=== PATIENT | female | born 1970 | race African-American/Black ===

== ENCOUNTER 2017-05-20 17:19 | Inpatient (IN) | payer MEDICARE, MEDICAID ==
[~2017-05-20] VITALS: Ht 167.6 cm; Wt 87.5 kg
[~2017-05-20 17:19] MED LIST: OXYCODONE PO; WARF5TAB71 PO
[2017-05-20 19:07] LABS: Basophils # (auto) 0 uL; Basophils % (auto) 0.5 % (0.0-2.0); CONDITION Y; DEFINITIVE SEE PRINTOUT; Eosinophils # (auto) 0 uL; Eosinophils % (auto) 0.3 % (0.0-7.0); Hematocrit 28.5 % (36.0-46.0); Hemoglobin 8.9 g/dL (12.2-16.2); Lymphocytes # (auto) 2.9 uL; Lymphocytes % (auto) 38.8 % (10.0-50.0); Mean Corpuscular Volume 80.4 fL (80.0-100.0); Monocytes # (auto) 0.5 uL; Monocytes % (auto) 7.1 % (0.0-12.0); Neutrophils % (auto) 53.3 % (37.0-80.0); Platelet Count (auto) 287 10^3/uL (140-450); Red Cell Distribution Width 17.5 % (11.6-16.0); White Blood Cell 7.5 10^3/uL (4.4-10.8)
[2017-05-20 19:27] LABS: Albumin 1.9 g/dL (3.4-5.0); BUN/Creatinine Ratio 16.3; Calcium 7.1 mg/dL (8.5-10.1)
[2017-05-20 19:29] LABS: Bilirubin, Total 0.4 mg/dL (0.2-1.0); Total Protein 5.1 g/dL (6.4-8.2)
[2017-05-20 21:09] LABS: Urine Bilirubin Negative (Negative); Urine Blood Negative /uL (Negative); Urine Color Yellow (Yellow); Urine Glucose Normal (Normal); Urine Ketone Negative (Negative); Urine Mucus FEW (None Seen); Urine Nitrite Negative (Negative); Urine RBC <1 /hpf (0 - 4); Urine Squamous Epithelial Cell FEW /hpf (<5); Urine Urobilinogen Normal (Negative); Urine pH 5.5 (5.0-8.0)
[2017-05-20] MEDS ORDERED: HYDROmorphone HCL 2 MG/ML VL IV ONE (23:30)
[2017-05-20] MEDS ORDERED: ENOXAPARIN SOD 80 MG/0.8ML SYRINGE SC ONE (23:30)
[2017-05-20] MEDS ORDERED: ONDANSETRON HCL 4 MG/2 ML VIAL IV ONE (23:30)
[2017-05-21] MEDS ORDERED: HYDROmorphone HCL 2 MG/ML VL IV ONE (03:15)
[2017-05-21] MEDS: SODIUM CHLORIDE 0.9% 1,000 ML IV SCH ×2 (06:33→13:51)
[2017-05-21] MEDS: FERROUS SULFATE 325 MG TAB PO SCH ×3 (08:00→18:04)
[2017-05-21] MEDS: ENOXAPARIN SOD 80 MG/0.8ML SYRINGE SC SCH ×2 (10:00→21:46)
[2017-05-21] MEDS: PANTOPRAZOLE SODIUM 40 MG/10 ML VIAL IV SCH (10:00)
[2017-05-21 11:42] VITALS: BP 80/52
[2017-05-21 12:17] VITALS: BP 103/54
[2017-05-21 12:18] VITALS: BP 80/52
[2017-05-21] MEDS: HYDROmorphone HCL 2 MG/ML VL IV PRN ×2 (14:05→20:42)
[2017-05-21] MEDS: ONDANSETRON HCL 4 MG/2 ML VIAL IV PRN ×2 (14:06→20:42)
[2017-05-21 17:00] VITALS: BP_SYST 151; BP_SYST 94; BP_DIAS 59; BP_DIAS 98
[2017-05-21] MEDS ORDERED: WARFARIN SODIUM 5 MG TAB PO ONE (17:00)
[2017-05-21] MEDS ORDERED: ACETAMINOPHEN 500 MG TAB PO PRN (18:30)
[2017-05-21 19:19] LABS: INR 1.24 (0.9-1.15)
[2017-05-21 19:50] LABS: Prothrombin Time 13.6 sec (9.37-12.3)
[2017-05-21 21:51] VITALS: BP 91/61
[2017-05-22] MEDS: ONDANSETRON HCL 4 MG/2 ML VIAL IV PRN ×3 (02:39→21:42)
[2017-05-22] MEDS: HYDROmorphone HCL 2 MG/ML VL IV PRN ×5 (02:39→21:41)
[2017-05-22 05:36] LABS: CONDITION Y; DEFINITIVE SEE PRINTOUT; Hematocrit 25.5 % (36.0-46.0); Hemoglobin 8.2 g/dL (12.2-16.2); Mean Corpuscular Hemoglobin 25.1 pg (28.0-32.0); Mean Corpuscular Hgb Conc. 31.9 g/dL (32.0-36.0); Mean Corpuscular Volume 78.7 fL (80.0-100.0); Mean Platelet Volume 10.3 fL (7.4-10.4); Platelet Count (auto) 259 10^3/uL (140-450); SUSPECT SEE PRINTOUT; White Blood Cell 6.4 10^3/uL (4.4-10.8)
[2017-05-22 05:44] LABS: INR 1.33 (0.9-1.15); Partial Thromboplastin Time 36.6 sec (22.64-33.71)
[2017-05-22 05:45] LABS: Metamyelocytes % 0; Myelocytes % 0; Promyelocytes % 0; Reactive Lymphocytes 0
[2017-05-22 05:46] LABS: Prothrombin Time 14.5 sec (9.37-12.3)
[2017-05-22 05:54] LABS: Albumin 1.5 g/dL (3.4-5.0); Calcium 6.8 mg/dL (8.5-10.1); Potassium 4.3 mmol/L (3.5-5.1)
[2017-05-22 05:58] LABS: BUN/Creatinine Ratio 18.3; Bilirubin, Total 0.3 mg/dL (0.2-1.0); Total Protein 4.1 g/dL (6.4-8.2)
[2017-05-22 06:11] VITALS: BP 89/44
[2017-05-22] MEDS: SODIUM CHLORIDE 0.9% 1,000 ML IV SCH ×2 (08:57→21:41)
[2017-05-22 09:00] VITALS: BP 92/49
[2017-05-22] MEDS: ENOXAPARIN SOD 80 MG/0.8ML SYRINGE SC SCH ×2 (09:48→21:25)
[2017-05-22] MEDS: PANTOPRAZOLE SODIUM 40 MG/10 ML VIAL IV SCH (09:48)
[2017-05-22] MEDS: FERROUS SULFATE 325 MG TAB PO SCH ×3 (09:49→19:00)
[2017-05-22 10:55] LABS: Platelet Estimate Adequate
[2017-05-22 10:56] LABS: Ovalocytes FEW
[2017-05-22 10:57] LABS: Anisocytosis Slight; Hypochromia Slight; Microcytosis Slight; Tear Drop Cells FEW
[2017-05-22 13:00] VITALS: BP 90/54
[2017-05-22 17:00] VITALS: BP 98/65
[2017-05-22 21:03] VITALS: BP 91/53
[2017-05-23] MEDS: ONDANSETRON HCL 4 MG/2 ML VIAL IV PRN ×4 (01:50→22:23)
[2017-05-23] MEDS: HYDROmorphone HCL 2 MG/ML VL IV PRN ×4 (01:50→22:23)
[2017-05-23 05:00] VITALS: BP 93/55
[2017-05-23 06:21] LABS: Basophils # (auto) 0 uL; Basophils % (auto) 0.5 % (0.0-2.0); CONDITION Y; DEFINITIVE SEE PRINTOUT; Eosinophils # (auto) 0.1 uL; Eosinophils % (auto) 1.2 % (0.0-7.0); Hematocrit 25.6 % (36.0-46.0); Hemoglobin 8.3 g/dL (12.2-16.2); Lymphocytes # (auto) 2.7 uL; Lymphocytes % (auto) 47.4 % (10.0-50.0); Mean Corpuscular Hemoglobin 25.8 pg (28.0-32.0); Mean Corpuscular Hgb Conc. 32.2 g/dL (32.0-36.0); Mean Corpuscular Volume 80.1 fL (80.0-100.0); Mean Platelet Volume 9.9 fL (7.4-10.4); Monocytes # (auto) 0.4 uL; Monocytes % (auto) 7.8 % (0.0-12.0); Neutrophils # (auto) 2.4 uL; Neutrophils % (auto) 43.1 % (37.0-80.0); Platelet Count (auto) 260 10^3/uL (140-450); Red Cell Distribution Width 18.3 % (11.6-16.0); White Blood Cell 5.6 10^3/uL (4.4-10.8)
[2017-05-23 06:36] LABS: INR 1.45 (0.9-1.15)
[2017-05-23 06:38] LABS: Prothrombin Time 15.9 sec (9.37-12.3)
[2017-05-23 06:53] LABS: Albumin 1.5 g/dL (3.4-5.0); BUN/Creatinine Ratio 14.5; Bilirubin, Total 0.3 mg/dL (0.2-1.0); Calcium 6.9 mg/dL (8.5-10.1); Potassium 4.2 mmol/L (3.5-5.1)
[2017-05-23] MEDS: FERROUS SULFATE 325 MG TAB PO SCH ×3 (07:45→18:00)
[2017-05-23 09:12] VITALS: BP 84/45
[2017-05-23] MEDS: ENOXAPARIN SOD 80 MG/0.8ML SYRINGE SC SCH ×2 (10:01→22:22)
[2017-05-23] MEDS: PANTOPRAZOLE SODIUM 40 MG/10 ML VIAL IV SCH (10:01)
[2017-05-23 11:07] LABS: Albumin 2.1 g/dL (2.9-4.4); Alpha-1-Globulin 0.2 g/dL (0.0-0.4); Gamma Globulin 1.3 g/dL (0.4-1.8); Protein Total Serum 4.4 g/dL (6.0-8.5)
[2017-05-23] MEDS: SODIUM CHLORIDE 0.9% 1,000 ML IV SCH (11:37)
[2017-05-23 13:00] VITALS: BP 112/49
[2017-05-23] MEDS ORDERED: SODIUM FERR GLUC 62.5MG/5ML 125 MG in SODIUM CHL 0.9% 100 ML IV ONE (13:00)
[2017-05-23 17:00] VITALS: BP 91/55
[2017-05-23 22:00] VITALS: BP 91/51
[2017-05-23 23:47] VITALS: BP 91/51
[2017-05-24] MEDS: SODIUM CHLORIDE 0.9% 1,000 ML IV SCH ×2 (00:57→22:03)
[2017-05-24] MEDS: HYDROmorphone HCL 2 MG/ML VL IV PRN ×3 (04:40→23:43)
[2017-05-24] MEDS: ONDANSETRON HCL 4 MG/2 ML VIAL IV PRN ×2 (04:40→18:43)
[2017-05-24 05:00] VITALS: BP 99/49
[2017-05-24 06:03] LABS: Basophils # (auto) 0 uL; Basophils % (auto) 0.4 % (0.0-2.0); CONDITION Y; DEFINITIVE SEE PRINTOUT; Eosinophils # (auto) 0.1 uL; Hematocrit 27.6 % (36.0-46.0); Hemoglobin 8.6 g/dL (12.2-16.2); Lymphocytes # (auto) 4.3 uL; Lymphocytes % (auto) 53.3 % (10.0-50.0); Mean Corpuscular Hemoglobin 24.8 pg (28.0-32.0); Mean Corpuscular Hgb Conc. 31.1 g/dL (32.0-36.0); Mean Corpuscular Volume 79.7 fL (80.0-100.0); Mean Platelet Volume 10.4 fL (7.4-10.4); Monocytes # (auto) 0.4 uL; Monocytes % (auto) 4.5 % (0.0-12.0); Neutrophils # (auto) 3.3 uL; Neutrophils % (auto) 40.8 % (37.0-80.0); Platelet Count (auto) 281 10^3/uL (140-450); Red Cell Distribution Width 18.7 % (11.6-16.0)
[2017-05-24 06:26] LABS: Albumin 1.6 g/dL (3.4-5.0); BUN/Creatinine Ratio 12.6; Bilirubin, Total 0.3 mg/dL (0.2-1.0); Calcium 7.2 mg/dL (8.5-10.1); Potassium 4.2 mmol/L (3.5-5.1); Total Protein 4.3 g/dL (6.4-8.2)
[2017-05-24 06:53] LABS: INR 1.56 (0.9-1.15)
[2017-05-24 06:57] LABS: Prothrombin Time 17.1 sec (9.37-12.3)
[2017-05-24 08:00] VITALS: BP 81/46
[2017-05-24 09:32] VITALS: BP 81/46
[2017-05-24] MEDS: FERROUS SULFATE 325 MG TAB PO SCH ×3 (09:47→18:42)
[2017-05-24] MEDS: PANTOPRAZOLE SODIUM 40 MG/10 ML VIAL IV SCH (09:47)
[2017-05-24] MEDS: ENOXAPARIN SOD 80 MG/0.8ML SYRINGE SC SCH ×2 (09:47→22:02)
[2017-05-24 13:00] VITALS: BP 84/43
[2017-05-24] MEDS: SODIUM FERR GLUC 62.5MG/5ML 125 MG in SODIUM CHL 0.9% 100 ML IV SCH (16:53)
[2017-05-24 18:16] VITALS: BP 79/51
[2017-05-24 22:00] VITALS: BP 86/53
[2017-05-25] MEDS: SODIUM CHLORIDE 0.9% 1,000 ML IV SCH (03:37)
[2017-05-25 05:00] VITALS: BP 96/45
[2017-05-25 06:30] LABS: Basophils # (auto) 0 uL; Basophils % (auto) 0.4 % (0.0-2.0); CONDITION Y; DEFINITIVE SEE PRINTOUT; Eosinophils # (auto) 0 uL; Eosinophils % (auto) 0.7 % (0.0-7.0); Hematocrit 25.2 % (36.0-46.0); Hemoglobin 7.9 g/dL (12.2-16.2); Lymphocytes # (auto) 3.2 uL; Lymphocytes % (auto) 51.8 % (10.0-50.0); Mean Corpuscular Hemoglobin 24.8 pg (28.0-32.0); Mean Corpuscular Hgb Conc. 31.6 g/dL (32.0-36.0); Mean Corpuscular Volume 78.7 fL (80.0-100.0); Mean Platelet Volume 10.6 fL (7.4-10.4); Monocytes # (auto) 0.5 uL; Monocytes % (auto) 7.2 % (0.0-12.0); Neutrophils # (auto) 2.5 uL; Neutrophils % (auto) 39.9 % (37.0-80.0); Platelet Count (auto) 279 10^3/uL (140-450); Red Cell Distribution Width 18.4 % (11.6-16.0); White Blood Cell 6.3 10^3/uL (4.4-10.8)
[2017-05-25 06:33] LABS: Albumin 1.5 g/dL (3.4-5.0); BUN/Creatinine Ratio 16.4; Bilirubin, Total 0.3 mg/dL (0.2-1.0); Calcium 7.1 mg/dL (8.5-10.1); Potassium 4.1 mmol/L (3.5-5.1); Total Protein 3.9 g/dL (6.4-8.2)
[2017-05-25 06:54] LABS: INR 1.53 (0.9-1.15)
[2017-05-25 06:56] LABS: Prothrombin Time 16.7 sec (9.37-12.3)
[2017-05-25 08:30] VITALS: BP 89/48
[2017-05-25] MEDS: FERROUS SULFATE 325 MG TAB PO SCH ×2 (08:31→12:00)
[2017-05-25] MEDS: ONDANSETRON HCL 4 MG/2 ML VIAL IV PRN (08:53)
[2017-05-25] MEDS: SODIUM FERR GLUC 62.5MG/5ML 125 MG in SODIUM CHL 0.9% 100 ML IV SCH (10:32)
[2017-05-25] MEDS: PANTOPRAZOLE SODIUM 40 MG/10 ML VIAL IV SCH (10:32)
[2017-05-25] MEDS: ENOXAPARIN SOD 80 MG/0.8ML SYRINGE SC SCH (10:32)
[2017-05-25 11:44] VITALS: BP 89/48
[2017-05-25 12:17] VITALS: BP 89/48
[2017-05-25 12:30] VITALS: BP 106/56
== END 2017-05-25 13:30 | disposition home or self-care (01) | DRG 299 ==
LOC: ER 17:24 → OVERFLOW 17:25 → EAST 05-21 08:02 → WEST WING 05-21 13:26
PROVIDERS: ADMIT Family Medicine; ATTEND Internal Medicine
DX: I82.4Z3 Acute embolism and thrombosis of unspecified deep veins of distal lower extremity, bilateral (principal); E43 Unspecified severe protein-calorie malnutrition; D64.9 Anemia, unspecified; D50.9 Iron deficiency anemia, unspecified; M79.89 Other specified soft tissue disorders; K21.9 Gastro-esophageal reflux disease without esophagitis; M19.90 Unspecified osteoarthritis, unspecified site; Z82.3 Family history of stroke; Z83.3 Family history of diabetes mellitus; Z82.49 Family history of ischemic heart disease and other diseases of the circulatory system; Z88.6 Allergy status to analgesic agent; Z79.899 Other long term (current) drug therapy; Z90.49 Acquired absence of other specified parts of digestive tract; Z68.31 Body mass index [BMI] 31.0-31.9, adult
CPT/HCPCS: 36415; 80053; 81001; 82607; 82728; 83540; 83550; 83615; 84155; 84165; 85007; 85025; 85027; 85045; 85379; 85610; 85730; 86880; 93005; 93970; 96372; 96374; 96375; 96376; C9113; J2405

== ENCOUNTER 2018-04-26 17:34 | Emergency (ER) | payer MEDICARE, MEDICAID ==
[~2018-04-26] VITALS: Ht 167.6 cm; Wt 86.2 kg
[2018-04-26 19:54] LABS: Basophils # (auto) 0.1 uL; Eosinophils # (auto) 0.1 uL; Mean Corpuscular Volume 79.7 fL (80.0-100.0)
[2018-04-26 19:56] LABS: Basophils % (auto) 1.2 % (0.0-2.0); Eosinophils % (auto) 1.3 % (0.0-7.0); Hematocrit 34.7 % (36.0-46.0); Hemoglobin 10.8 g/dL (12.2-16.2); Lymphocytes % (auto) 32.2 % (10.0-50.0); Mean Corpuscular Hemoglobin 24.9 pg (28.0-32.0); Mean Corpuscular Hgb Conc. 31.2 g/dL (32.0-36.0); Monocytes # (auto) 0.6 uL; Monocytes % (auto) 8.9 % (0.0-12.0); Neutrophils # (auto) 3.5 uL; Neutrophils % (auto) 56.4 % (37.0-80.0); Nucleated Red Blood Cells % 0.3 %; Platelet Count (auto) 303 10^3/uL (140-450); Red Blood Cells 4.36 10^6/uL (4.0-5.20); Red Cell Distribution Width 15.7 % (11.8-14.3); White Blood Cell 6.2 10^3/uL (4.4-10.8)
[2018-04-26 20:10] LABS: INR 1.02 (0.9-1.15); Partial Thromboplastin Time 26.2 sec (23.78-33.04); Prothrombin Time 10.9 sec (9.27-12.13)
[2018-04-26 20:11] LABS: Albumin 3.4 g/dL (3.4-5.0); BUN/Creatinine Ratio 26.1; Calcium 8.5 mg/dL (8.5-10.1); Potassium 4.7 mmol/L (3.5-5.1)
[2018-04-26 20:14] LABS: Bilirubin, Total 0.5 mg/dL (0.2-1.0); Magnesium 2.2 mg/dL (1.6-2.6); Total Protein 7.3 g/dL (6.4-8.2)
[2018-04-26] MEDS ORDERED: NALBUPHINE HCL 10 MG/1ml INJECTION IV ONE (20:15)
[2018-04-26] MEDS ORDERED: ONDANSETRON HCL 4 MG/2 ML VIAL IV ONE (20:15)
[2018-04-26] MEDS ORDERED: diphenhdrAMINE HCL 50 MG/1 ML VL ONE (20:40)
[2018-04-26] MEDS ORDERED: ENOXAPARIN SOD 100 MG/1 ML SYRINGE SC ONE ×2 (20:45→21:00)
[2018-04-26] MEDS ORDERED: diphenhdrAMINE HCL 50 MG/1 ML VL IV ONE (20:45)
[2018-04-27] MEDS ORDERED: HYDROcodone-ACET 5/325MG TAB PO ONE (01:30)
[2018-04-27] MEDS ORDERED: ONDANSETRON HCL 4 MG/2 ML VIAL IV ONE (01:30)
[2018-04-27 01:42] VITALS: BP 103/66
== END 2018-04-27 02:08 | disposition home or self-care (01) ==
LOC: ER 17:34
DX: R07.89 Other chest pain (principal); I82.402 Acute embolism and thrombosis of unspecified deep veins of left lower extremity; Z79.01 Long term (current) use of anticoagulants; Z86.718 Personal history of other venous thrombosis and embolism; Z90.49 Acquired absence of other specified parts of digestive tract
CPT/HCPCS: 36415; 71045; 80053; 83735; 83880; 84443; 84484; 85025; 85379; 85610; 85730; 93005; 93971; 96372; 96374; 96375; 96376; 99285; J1200; J1650; J2300; J2405

== ENCOUNTER 2018-08-25 13:29 | Inpatient (IN) | payer MEDICARE, MEDICAID ==
[~2018-08-25] VITALS: Ht 165.1 cm; Wt 102.8 kg
[2018-08-25 14:32] LABS: BUN/Creatinine Ratio 26.5; Calcium 8.4 mg/dL (8.5-10.1); Potassium 3.7 mmol/L (3.5-5.1)
[2018-08-25 16:13] LABS: Basophils # (auto) 0 uL; Eosinophils # (auto) 0 uL; Monocytes # (auto) 0.4 uL; Monocytes % (auto) 5.1 % (0.0-12.0); Neutrophils # (auto) 5.3 uL; Red Cell Distribution Width 15.4 % (11.8-14.3)
[2018-08-25 16:15] LABS: Basophils % (auto) 0.2 % (0.0-2.0); Eosinophils % (auto) 0.5 % (0.0-7.0); Hematocrit 38.9 % (36.0-46.0); Lymphocytes # (auto) 1.6 uL; Lymphocytes % (auto) 21.8 % (10.0-50.0); Mean Corpuscular Hemoglobin 25.4 pg (28.0-32.0); Mean Corpuscular Hgb Conc. 30.8 g/dL (32.0-36.0); Mean Corpuscular Volume 82.4 fL (80.0-100.0); Neutrophils % (auto) 72.4 % (37.0-80.0); Nucleated Red Blood Cells % 0.2 %; Platelet Count (auto) 219 10^3/uL (140-450); Red Blood Cells 4.72 10^6/uL (4.0-5.20); White Blood Cell 7.3 10^3/uL (4.4-10.8)
[2018-08-25 16:18] LABS: INR 1.09 (0.9-1.15); Prothrombin Time 11.6 sec (9.27-12.13)
[2018-08-25] MEDS ORDERED: SODIUM CHLORIDE 0.9% 1,000 ML IVB ONE (19:06)
[2018-08-25] MEDS ORDERED: ONDANSETRON HCL 4 MG/2 ML VIAL IV ONE (19:15)
[2018-08-25] MEDS ORDERED: MEPERIDINE HCL (25 MG/ML) 1ML VIAL IV ONE (19:15)
[2018-08-25] MEDS ORDERED: TETANUS-DIPTH-ACEL PERTUSSIS 0.5ML SYRG IM ONE (19:15)
[2018-08-25 20:20] LABS: Albumin 3.3 g/dL (3.4-5.0); BUN/Creatinine Ratio 25.8; Bilirubin, Total 0.6 mg/dL (0.2-1.0); Calcium 8.2 mg/dL (8.5-10.1); Potassium 3.5 mmol/L (3.5-5.1); Total Protein 6.7 g/dL (6.4-8.2)
[2018-08-25] MEDS ORDERED: ENOXAPARIN SOD 100 MG/1 ML SYRINGE SC ONE (21:45)
[2018-08-26] VITALS (7 sets, daily range): BP systolic 105–120; BP diastolic 62–71
[2018-08-26] MEDS ORDERED: ALPRAZolam 0.5 MG TAB PO PRN (03:00)
[2018-08-26] MEDS ORDERED: ACETAMINOPHEN 500 MG TAB PO PRN (03:00)
[2018-08-26] MEDS: HYDROmorphone HCL 2 MG/ML VL IV PRN ×4 (04:39→22:02)
[2018-08-26] MEDS: ONDANSETRON HCL 4 MG/2 ML VIAL IV PRN (04:39)
[2018-08-26] MEDS ORDERED: ENOX80IN SC (06:49)
[2018-08-26] MEDS ORDERED: ERGO1CAP6 PO (06:49)
[2018-08-26] MEDS ORDERED: AMPH20TA20 PO (06:49)
[2018-08-26] MEDS ORDERED: ALPR2TAB2 PO (06:49)
[2018-08-26] MEDS: GABAPENTIN 400 MG CAP PO SCH ×2 (10:14→21:53)
[2018-08-26] MEDS: ENOXAPARIN SOD 80 MG/0.8ML SYRINGE SC SCH ×2 (10:14→21:53)
[2018-08-26 13:38] LABS: Urine Bacteria MOD /hpf (None Seen); Urine Blood Negative /uL (Negative); Urine Mucus FEW (None Seen); Urine Specific Gravity 1.034 (1.001-1.035); Urine WBC 2 /hpf (0 - 5)
[2018-08-27] VITALS (7 sets, daily range): BP systolic 102–122; BP diastolic 66–73
[2018-08-27] MEDS: HYDROmorphone HCL 2 MG/ML VL IV PRN ×5 (04:07→22:42)
[2018-08-27] MEDS: HYDROcodone-ACET 5/325MG TAB PO PRN ×4 (05:56→21:37)
[2018-08-27] MEDS: ENOXAPARIN SOD 80 MG/0.8ML SYRINGE SC SCH ×2 (11:33→21:37)
[2018-08-27] MEDS: GABAPENTIN 400 MG CAP PO SCH ×2 (11:34→21:36)
[2018-08-27] MEDS ORDERED: GABA800T97 (17:07)
[2018-08-27] MEDS ORDERED: FENT50DI2 (17:07)
[2018-08-28] MEDS: HYDROmorphone HCL 2 MG/ML VL IV PRN ×4 (04:23→21:00)
[2018-08-28 05:00] VITALS: BP 108/65
[2018-08-28] MEDS: ENOXAPARIN SOD 80 MG/0.8ML SYRINGE SC SCH ×2 (07:57→21:54)
[2018-08-28] MEDS: GABAPENTIN 400 MG CAP PO SCH ×2 (07:57→21:54)
[2018-08-28] MEDS: HYDROcodone-ACET 5/325MG TAB PO PRN ×3 (07:58→23:21)
[2018-08-28] MEDS ORDERED: ADENOSINE 86 MG in GIVE UN-DILUTED 0 ML IV ONE (08:15)
[2018-08-28 09:00] VITALS: BP 102/7
[2018-08-28 12:28] VITALS: BP 115/71
[2018-08-28 13:00] VITALS: BP 122/77
[2018-08-28 16:36] VITALS: BP 107/46
[2018-08-28 22:00] VITALS: BP 96/67
[2018-08-29] MEDS: HYDROmorphone HCL 2 MG/ML VL IV PRN ×6 (01:13→22:55)
[2018-08-29 05:00] VITALS: BP 111/77
[2018-08-29] MEDS: HYDROcodone-ACET 5/325MG TAB PO PRN ×3 (07:37→21:03)
[2018-08-29 08:30] VITALS: BP 104/64
[2018-08-29] MEDS: GABAPENTIN 400 MG CAP PO SCH ×2 (09:57→22:15)
[2018-08-29] MEDS: ENOXAPARIN SOD 80 MG/0.8ML SYRINGE SC SCH (09:57)
[2018-08-29 12:30] VITALS: BP 115/74
[2018-08-29 16:31] VITALS: BP 115/75
[2018-08-29 22:00] VITALS: BP 117/66
[2018-08-29] MEDS: APIXABAN 5 MG TAB PO SCH (22:13)
[2018-08-29] MEDS: CARVEDILOL 3.125 MG TAB PO SCH (22:13)
[2018-08-30 05:02] VITALS: BP 111/66
[2018-08-30] MEDS: HYDROmorphone HCL 2 MG/ML VL IV PRN ×5 (06:13→19:55)
[2018-08-30] MEDS: HYDROcodone-ACET 5/325MG TAB PO PRN ×2 (07:02→23:22)
[2018-08-30 07:51] VITALS: BP 105/65
[2018-08-30] MEDS: LISINOPRIL 5 MG TAB PO SCH (10:00)
[2018-08-30] MEDS: GABAPENTIN 400 MG CAP PO SCH ×2 (10:05→21:48)
[2018-08-30] MEDS: APIXABAN 5 MG TAB PO SCH ×2 (10:05→21:48)
[2018-08-30] MEDS: CARVEDILOL 3.125 MG TAB PO SCH ×2 (10:06→21:49)
[2018-08-30] MEDS: METHOCARBAMOL 500 MG TAB PO SCH ×3 (11:56→21:48)
[2018-08-30 12:13] VITALS: BP 100/62
[2018-08-30 17:13] VITALS: BP 100/64
[2018-08-30 22:00] VITALS: BP 106/59
[2018-08-31] MEDS: HYDROmorphone HCL 2 MG/ML VL IV PRN ×6 (00:01→20:26)
[2018-08-31 05:00] VITALS: BP 96/63
[2018-08-31] MEDS: HYDROcodone-ACET 5/325MG TAB PO PRN ×3 (06:38→18:19)
[2018-08-31] MEDS: METHOCARBAMOL 500 MG TAB PO SCH ×4 (06:38→21:57)
[2018-08-31 08:23] VITALS: BP 105/63
[2018-08-31] MEDS: LISINOPRIL 5 MG TAB PO SCH (09:22)
[2018-08-31] MEDS: CARVEDILOL 3.125 MG TAB PO SCH ×2 (09:22→21:57)
[2018-08-31] MEDS: APIXABAN 5 MG TAB PO SCH ×2 (09:22→21:56)
[2018-08-31] MEDS: GABAPENTIN 400 MG CAP PO SCH ×2 (09:22→21:56)
[2018-08-31] MEDS ORDERED: DOCUSATE CALCIUM 240 MG CAP PO PRN (10:15)
[2018-08-31 12:17] VITALS: BP 96/60
[2018-08-31] MEDS: KETOROLAC TROMETH 30 MG/ML 1ML VIAL IV SCH ×3 (12:17→23:47)
[2018-08-31 17:00] VITALS: BP 99/66
[2018-08-31 17:15] VITALS: BP 108/59
[2018-08-31 22:00] VITALS: BP 86/54
[2018-08-31] MEDS: ONDANSETRON HCL 4 MG/2 ML VIAL IV PRN (23:47)
[2018-09-01 04:58] VITALS: BP 110/69
[2018-09-01] MEDS: METHOCARBAMOL 500 MG TAB PO SCH ×4 (06:16→23:25)
[2018-09-01] MEDS: HYDROmorphone HCL 2 MG/ML VL IV PRN ×5 (06:23→23:41)
[2018-09-01] MEDS: KETOROLAC TROMETH 30 MG/ML 1ML VIAL IV SCH ×3 (06:45→18:21)
[2018-09-01 08:00] VITALS: BP 89/69
[2018-09-01] MEDS: HYDROcodone-ACET 5/325MG TAB PO PRN ×2 (08:59→22:16)
[2018-09-01 09:00] VITALS: BP 89/69
[2018-09-01] MEDS: CARVEDILOL 3.125 MG TAB PO SCH ×2 (09:36→23:40)
[2018-09-01] MEDS: APIXABAN 5 MG TAB PO SCH (09:36)
[2018-09-01] MEDS: GABAPENTIN 400 MG CAP PO SCH ×2 (09:36→23:25)
[2018-09-01] MEDS: LISINOPRIL 5 MG TAB PO SCH (09:37)
[2018-09-01 13:00] VITALS: BP 103/69
[2018-09-01 17:00] VITALS: BP 94/53
[2018-09-01] MEDS: SUCRALFATE 1 GM TAB PO SCH ×2 (18:22→23:25)
[2018-09-01 22:00] VITALS: BP 87/68
[2018-09-01] MEDS: PANTOPRAZOLE 40 MG TAB PO SCH (23:25)
[2018-09-02] MEDS: KETOROLAC TROMETH 30 MG/ML 1ML VIAL IV SCH ×3 (00:43→11:37)
[2018-09-02] MEDS: HYDROmorphone HCL 2 MG/ML VL IV PRN ×6 (03:02→23:42)
[2018-09-02 05:00] VITALS: BP 92/64
[2018-09-02] MEDS: HYDROcodone-ACET 5/325MG TAB PO PRN ×3 (05:06→22:43)
[2018-09-02] MEDS: METHOCARBAMOL 500 MG TAB PO SCH ×4 (07:30→21:57)
[2018-09-02] MEDS: SUCRALFATE 1 GM TAB PO SCH ×4 (07:31→21:56)
[2018-09-02 08:00] VITALS: BP 100/80
[2018-09-02 09:00] VITALS: BP 100/80
[2018-09-02] MEDS: CARVEDILOL 3.125 MG TAB PO SCH ×2 (09:28→21:57)
[2018-09-02] MEDS: PANTOPRAZOLE 40 MG TAB PO SCH ×2 (09:28→21:57)
[2018-09-02] MEDS: GABAPENTIN 400 MG CAP PO SCH ×2 (09:28→21:57)
[2018-09-02] MEDS: LISINOPRIL 5 MG TAB PO SCH (09:29)
[2018-09-02 12:24] LABS: Basophils # (auto) 0.1 uL; Eosinophils # (auto) 0.2 uL; Mean Corpuscular Volume 81.5 fL (80.0-100.0); Monocytes # (auto) 0.5 uL; Neutrophils # (auto) 4.7 uL
[2018-09-02 12:26] LABS: Basophils % (auto) 0.7 % (0.0-2.0); Eosinophils % (auto) 2.3 % (0.0-7.0); Lymphocytes # (auto) 1.5 uL; Lymphocytes % (auto) 21.4 % (10.0-50.0); Mean Corpuscular Hemoglobin 25.5 pg (28.0-32.0); Mean Corpuscular Hgb Conc. 31.3 g/dL (32.0-36.0); Monocytes % (auto) 7.4 % (0.0-12.0); Neutrophils % (auto) 68.2 % (37.0-80.0); Nucleated Red Blood Cells % 0.3 %; Platelet Count (auto) 235 10^3/uL (140-450); Red Cell Distribution Width 14.3 % (11.8-14.3); White Blood Cell 6.9 10^3/uL (4.4-10.8)
[2018-09-02 13:00] VITALS: BP 90/60
[2018-09-02] MEDS: ENOXAPARIN SOD 100 MG/1 ML SYRINGE SC SCH ×2 (14:15→21:58)
[2018-09-02] MEDS: ONDANSETRON HCL 4 MG/2 ML VIAL IV PRN ×2 (14:38→21:58)
[2018-09-02 17:00] VITALS: BP 94/58
[2018-09-02 22:00] VITALS: BP 145/55
[2018-09-03] VITALS (7 sets, daily range): BP systolic 90–104; BP diastolic 50–89
[2018-09-03] MEDS: HYDROmorphone HCL 2 MG/ML VL IV PRN ×6 (03:06→20:51)
[2018-09-03 06:09] LABS: Basophils # (auto) 0 uL; Eosinophils # (auto) 0.1 uL; Lymphocytes # (auto) 1.6 uL; Nucleated Red Blood Cells % 0.1 %
[2018-09-03 06:12] LABS: Basophils % (auto) 0.6 % (0.0-2.0); Eosinophils % (auto) 2.2 % (0.0-7.0); Hematocrit 35.9 % (36.0-46.0); Lymphocytes % (auto) 24.2 % (10.0-50.0); Mean Corpuscular Hemoglobin 25.3 pg (28.0-32.0); Mean Corpuscular Hgb Conc. 30.6 g/dL (32.0-36.0); Mean Corpuscular Volume 82.8 fL (80.0-100.0); Monocytes # (auto) 0.5 uL; Monocytes % (auto) 8.1 % (0.0-12.0); Neutrophils # (auto) 4.2 uL; Neutrophils % (auto) 64.9 % (37.0-80.0); Platelet Count (auto) 209 10^3/uL (140-450); Red Blood Cells 4.34 10^6/uL (4.0-5.20); Red Cell Distribution Width 14.6 % (11.8-14.3); White Blood Cell 6.4 10^3/uL (4.4-10.8)
[2018-09-03] MEDS: SUCRALFATE 1 GM TAB PO SCH ×4 (06:12→21:18)
[2018-09-03] MEDS: METHOCARBAMOL 500 MG TAB PO SCH ×4 (06:12→21:19)
[2018-09-03 06:22] LABS: Calcium 8.1 mg/dL (8.5-10.1); Potassium 5.2 mmol/L (3.5-5.1)
[2018-09-03 06:24] LABS: BUN/Creatinine Ratio 35.2
[2018-09-03] MEDS: ENOXAPARIN SOD 100 MG/1 ML SYRINGE SC SCH ×2 (09:44→21:17)
[2018-09-03] MEDS: PANTOPRAZOLE 40 MG TAB PO SCH ×2 (09:44→21:18)
[2018-09-03] MEDS: GABAPENTIN 400 MG CAP PO SCH ×2 (09:44→21:18)
[2018-09-03] MEDS: LISINOPRIL 5 MG TAB PO SCH (09:49)
[2018-09-03] MEDS: CARVEDILOL 3.125 MG TAB PO SCH ×2 (09:49→21:19)
[2018-09-03] MEDS: ONDANSETRON HCL 4 MG/2 ML VIAL IV PRN (11:35)
[2018-09-03] MEDS: HYDROcodone-ACET 5/325MG TAB PO PRN ×2 (11:45→22:44)
[2018-09-04] MEDS: ONDANSETRON HCL 4 MG/2 ML VIAL IV PRN ×3 (01:36→21:42)
[2018-09-04] MEDS: HYDROmorphone HCL 2 MG/ML VL IV PRN ×7 (01:36→21:42)
[2018-09-04 05:32] VITALS: BP 105/67
[2018-09-04] MEDS: METHOCARBAMOL 500 MG TAB PO SCH ×5 (05:36→22:00)
[2018-09-04 06:55] LABS: Basophils # (auto) 0 uL; Basophils % (auto) 0.5 % (0.0-2.0); Eosinophils # (auto) 0.1 uL; Monocytes # (auto) 0.4 uL; Nucleated Red Blood Cells % 0.1 %
[2018-09-04 06:57] LABS: Hematocrit 36.4 % (36.0-46.0); Hemoglobin 11.3 g/dL (12.2-16.2); Lymphocytes # (auto) 1.8 uL; Lymphocytes % (auto) 32.6 % (10.0-50.0); Mean Corpuscular Hemoglobin 25.3 pg (28.0-32.0); Mean Corpuscular Volume 81.5 fL (80.0-100.0); Monocytes % (auto) 7.1 % (0.0-12.0); Neutrophils # (auto) 3.1 uL; Neutrophils % (auto) 57.8 % (37.0-80.0); Platelet Count (auto) 237 10^3/uL (140-450); Red Blood Cells 4.46 10^6/uL (4.0-5.20); Red Cell Distribution Width 14.3 % (11.8-14.3); White Blood Cell 5.4 10^3/uL (4.4-10.8)
[2018-09-04] MEDS: SUCRALFATE 1 GM TAB PO SCH ×4 (07:00→21:40)
[2018-09-04 07:11] LABS: Potassium 4.6 mmol/L (3.5-5.1)
[2018-09-04 07:16] LABS: Calcium 8.2 mg/dL (8.5-10.1)
[2018-09-04] MEDS ORDERED: SODIUM CHLORIDE LOCK 10 ML ONE (08:30)
[2018-09-04] MEDS ORDERED: LIDOCAINE VISCOUS 2% 15ML UD ONE (08:30)
[2018-09-04 09:00] VITALS: BP 91/58
[2018-09-04] MEDS: ENOXAPARIN SOD 100 MG/1 ML SYRINGE SC SCH ×2 (10:00→21:41)
[2018-09-04] MEDS: GABAPENTIN 400 MG CAP PO SCH ×2 (10:47→21:39)
[2018-09-04] MEDS: CARVEDILOL 3.125 MG TAB PO SCH ×2 (10:47→21:39)
[2018-09-04] MEDS: PANTOPRAZOLE 40 MG TAB PO SCH ×2 (10:48→21:39)
[2018-09-04] MEDS: LISINOPRIL 5 MG TAB PO SCH (10:48)
[2018-09-04] MEDS: MIDAZOLAM HCL 5 MG/ML-1ML VIAL ONE ×2 (11:42→11:45)
[2018-09-04] MEDS: fentaNYL CITRATE 100 MCG/2 ML VL ONE ×2 (11:42→11:45)
[2018-09-04 13:00] VITALS: BP 112/67
[2018-09-04 17:00] VITALS: BP 92/45
[2018-09-04 21:36] VITALS: BP 106/57
[2018-09-05] MEDS: HYDROmorphone HCL 2 MG/ML VL IV PRN ×2 (04:57→08:08)
[2018-09-05] MEDS: ONDANSETRON HCL 4 MG/2 ML VIAL IV PRN ×2 (05:02→09:36)
[2018-09-05 05:29] VITALS: BP 106/72
[2018-09-05] MEDS: SUCRALFATE 1 GM TAB PO SCH ×2 (06:29→11:30)
[2018-09-05] MEDS: METHOCARBAMOL 500 MG TAB PO SCH ×2 (06:29→12:00)
[2018-09-05 06:40] LABS: Hematocrit 35.3 % (36.0-46.0); Hemoglobin 10.9 g/dL (12.2-16.2); Mean Corpuscular Hgb Conc. 30.8 g/dL (32.0-36.0); Monocytes # (auto) 0.3 uL; Nucleated Red Blood Cells % 0.1 %; Red Cell Distribution Width 14.3 % (11.8-14.3); White Blood Cell 4.6 10^3/uL (4.4-10.8)
[2018-09-05 06:43] LABS: Basophils # (auto) 0 uL; Basophils % (auto) 0.5 % (0.0-2.0); Eosinophils # (auto) 0.1 uL; Eosinophils % (auto) 2.7 % (0.0-7.0); Lymphocytes # (auto) 1.8 uL; Lymphocytes % (auto) 38.9 % (10.0-50.0); Mean Corpuscular Hemoglobin 25.4 pg (28.0-32.0); Mean Corpuscular Volume 82.4 fL (80.0-100.0); Neutrophils # (auto) 2.3 uL; Neutrophils % (auto) 50.9 % (37.0-80.0); Platelet Count (auto) 230 10^3/uL (140-450); Red Blood Cells 4.29 10^6/uL (4.0-5.20)
[2018-09-05 06:57] LABS: Potassium 3.4 mmol/L (3.5-5.1)
[2018-09-05 07:09] LABS: BUN/Creatinine Ratio 20.8; Calcium 8.2 mg/dL (8.5-10.1)
[2018-09-05 09:00] VITALS: BP 105/72
[2018-09-05] MEDS: LISINOPRIL 5 MG TAB PO SCH (09:35)
[2018-09-05] MEDS: GABAPENTIN 400 MG CAP PO SCH (09:35)
[2018-09-05] MEDS: PANTOPRAZOLE 40 MG TAB PO SCH (09:35)
[2018-09-05] MEDS: CARVEDILOL 3.125 MG TAB PO SCH (09:35)
[2018-09-05] MEDS: ENOXAPARIN SOD 100 MG/1 ML SYRINGE SC SCH (09:36)
[2018-09-05 11:53] VITALS: BP 110/68
== END 2018-09-05 13:05 | disposition home health service (06) | DRG 74 ==
LOC: ER 13:29 → EDBD 13:29 → OVERFLOW 13:30 → CENTRAL 08-26 04:42
PROVIDERS: ADMIT Nurse Practitioner Family; ATTEND Internal Medicine
PROC: 0DJ08ZZ Inspection of Upper Intestinal Tract, Via Natural or Artificial Opening Endoscopic (ICD-10-PCS; principal; 2018-09-04 11:38)
DX: M54.10 Radiculopathy, site unspecified (principal); I42.9 Cardiomyopathy, unspecified; K92.2 Gastrointestinal hemorrhage, unspecified; I50.32 Chronic diastolic (congestive) heart failure; E44.1 Mild protein-calorie malnutrition; M54.9 Dorsalgia, unspecified; G89.4 Chronic pain syndrome; M43.17 Spondylolisthesis, lumbosacral region; E78.00 Pure hypercholesterolemia, unspecified; M54.30 Sciatica, unspecified side; S00.531A Contusion of lip, initial encounter; S33.5XXA Sprain of ligaments of lumbar spine, initial encounter; Y99.8 Other external cause status; K52.9 Noninfective gastroenteritis and colitis, unspecified; W19.XXXA Unspecified fall, initial encounter; E66.9 Obesity, unspecified; Z79.02 Long term (current) use of antithrombotics/antiplatelets; Z74.01 Bed confinement status; Z82.49 Family history of ischemic heart disease and other diseases of the circulatory system; Z82.3 Family history of stroke; Z86.711 Personal history of pulmonary embolism; Z83.3 Family history of diabetes mellitus; Z86.718 Personal history of other venous thrombosis and embolism; Z68.37 Body mass index [BMI] 37.0-37.9, adult; Z90.49 Acquired absence of other specified parts of digestive tract; Z98.84 Bariatric surgery status; Z95.1 Presence of aortocoronary bypass graft; Z23 Encounter for immunization; Y93.89 Activity, other specified; Y92.89 Other specified places as the place of occurrence of the external cause; K63.89 Other specified diseases of intestine
CPT/HCPCS: 36415; 72131; 72148; 73502; 74176; 78452; 80048; 80053; 81001; 82150; 83690; 85025; 85610; 90471; 90715; 93005; 93017; 93306; 93970; 94761; 96361; 96372; 96374; 96375; 97110; 97116; 97163; 97530; A6257; J0153; J1885; J2250; J2405

== ENCOUNTER 2018-12-20 23:03 | Emergency (ER) | payer MEDICARE, MEDICAID ==
[~2018-12-20] VITALS: Ht 167.6 cm; Wt 86.2 kg
[~2018-12-20 23:03] MED LIST changes: +ALPR2TAB2 PO; +AMPH20TA20 PO; +ERGO1CAP6 PO; +FENT50DI2; +GABA800T97; -WARF5TAB71 PO
[2018-12-20 23:30] VITALS: BP 129/74
== END 2018-12-21 03:00 | disposition left against medical advice (07) ==
LOC: ER 23:03 → EDBD 23:03 → ER 12-21 03:00
DX: M25.471 Effusion, right ankle (principal); Z53.21 Procedure and treatment not carried out due to patient leaving prior to being seen by health care provider

== ENCOUNTER 2019-11-17 13:00 | Emergency (ER) | payer MEDICARE, MEDICAID ==
[~2019-11-17] VITALS: Ht 167.6 cm; Wt 81.6 kg
[2019-11-17 13:55] VITALS: BP 108/53
[2019-11-17 15:09] LABS: INR 1.21 (0.9-1.15); Partial Thromboplastin Time 27.9 sec (23.64-32.05)
== END 2019-11-17 16:16 | disposition left against medical advice (07) ==
LOC: ER 13:00
DX: M79.605 Pain in left leg (principal); R51 Headache; Z53.21 Procedure and treatment not carried out due to patient leaving prior to being seen by health care provider
CPT/HCPCS: 36415; 70450; 85610; 85730; 93970

== ENCOUNTER 2021-06-16 04:42 | Emergency (ER) | payer MEDICARE, MEDICAID ==
[~2021-06-16] VITALS: Ht 165.1 cm; Wt 68.0 kg
[~2021-06-16 04:42] MED LIST changes: +ERGO1CAP12 PO; -ERGO1CAP6 PO
[2021-06-16] MEDS ORDERED: NALOXONE HCL 1MG/ML 2ML SYRINGE IV ONE (05:30)
[2021-06-16 05:45] LABS: Basophils # (auto) 0 10 ^3/uL (0-0.2); Eosinophils # (auto) 0 10 ^3/uL (0-0.8); Hematocrit 31.4 % (36.0-46.0); Lymphocytes # (auto) 1.1 10 ^3/uL (0.4-5.4); Lymphocytes % (auto) 18.2 % (10.0-50.0); Monocytes # (auto) 0.4 10 ^3/uL (0-1.3); Nucleated Red Blood Cells % 0.1 %
[2021-06-16 05:47] LABS: Basophils % (auto) 0.5 % (0.0-2.0); Eosinophils % (auto) 0.8 % (0.0-7.0); Hemoglobin 9.8 g/dL (12.2-16.2); Mean Corpuscular Hgb Conc. 31.2 g/dL (32.0-36.0); Mean Corpuscular Volume 80.3 fL (80.0-100.0); Neutrophils # (auto) 4.5 10 ^3/uL (1.6-8.6); Neutrophils % (auto) 73.5 % (37.0-80.0); Red Blood Cells 3.92 10^6/uL (4.0-5.20); Red Cell Distribution Width 16.5 % (11.8-14.3); White Blood Cell 6.1 10^3/uL (4.4-10.8)
[2021-06-16 06:03] LABS: Albumin 2.1 g/dL (3.4-5.0); BUN/Creatinine Ratio 23.5; Blood Alcohol < 3.0 mg/dL (0-5); Blood Urea Nitrogen 20 mg/dL (7-18); Calcium 7.4 mg/dL (8.5-10.1); Chloride 112 mmol/L (98-107); GFR African American 90 mL/min; GFR Non-African American 75 mL/min; Glucose 78 mg/dL (74-106); Potassium 5.4 mmol/L (3.5-5.1); Sodium 141 mmol/L (136-145)
[2021-06-16 06:04] LABS: Lactic Acid w/Reflex 2.4 mmol/L (0.4-2.0)
[2021-06-16 06:15] LABS: Alcohol, Urine < 3.0 mg/dL (0-10); Amphetamine Screen, Urine NEGATIVE (NEGATIVE); Barbiturate Scree,Urine NEGATIVE (NEGATIVE); Benzodiazephine Screen, Urine NEGATIVE (NEGATIVE); Cannabinoid Screen, Urine NEGATIVE (NEGATIVE); Cocaine Screen, Urine POSITIVE (NEGATIVE); Phencyclidine Screen, Urine NEGATIVE (NEGATIVE)
[2021-06-16 06:19] LABS: Alanine Aminotransferase 35 U/L (13-56); Alkaline Phosphatase 108 U/L (45-117); Anion Gap 6 (5-15); Aspartate Aminotransferase 42 U/L (15-37); Bilirubin, Total 0.4 mg/dL (0.2-1.0); Carbon Dioxide 23 mmol/L (21-32); Total Protein 5.3 g/dL (6.4-8.2)
[2021-06-16 06:22] LABS: Opiate Scree,Urine NEGATIVE (NEGATIVE)
[2021-06-16] MEDS ORDERED: SODIUM CHLORIDE 0.9% 1,000 ML IV ONE (07:00)
[2021-06-16] MEDS ORDERED: DEXTROSE (50%) 50ML SYRG IV ONE (07:30)
[2021-06-16] MEDS ORDERED: SODIUM ZIRCONIUM CYCL 10 GM PAK PO ONE (07:30)
[2021-06-16] MEDS ORDERED: FUROSEMIDE 20 MG/2 ML VIAL IV ONE (07:30)
[2021-06-16] MEDS ORDERED: CALCIUM GLUC 1,000mg/50ml-NS 50 ML IV ONE (07:30)
[2021-06-16] MEDS ORDERED: ALBUTEROL SULF 2.5 MG/0.5ML(0.5%) NEB SOLN NEB ONE (07:30)
[2021-06-16] MEDS ORDERED: InsuLIN REG 1unit/0.01ml Soln (100units/ml) IV ONE (07:30)
[2021-06-16 07:53] LABS: INR 1.16 (0.9-1.15); Partial Thromboplastin Time 23.7 sec (23.0-31.2)
[2021-06-16 10:57] VITALS: BP 97/58
== END 2021-06-16 11:05 | disposition left against medical advice (07) ==
LOC: ER 04:42
DX: F14.10 Cocaine abuse, uncomplicated (principal); F11.10 Opioid abuse, uncomplicated; E87.2 Acidosis; R51.9 Headache, unspecified; I10 Essential (primary) hypertension; Z90.49 Acquired absence of other specified parts of digestive tract; Z79.899 Other long term (current) drug therapy; Z88.5 Allergy status to narcotic agent; Z88.8 Allergy status to other drugs, medicaments and biological substances; W01.198A Fall on same level from slipping, tripping and stumbling with subsequent striking against other object, initial encounter; Y93.89 Activity, other specified; Y92.89 Other specified places as the place of occurrence of the external cause; Y99.8 Other external cause status
CPT/HCPCS: 36415; 70450; 71045; 72125; 80053; 80307; 80320; 83605; 85025; 85610; 85730; 94640; 96361; 96365; 96375; 99285; J0610; J1815; J1940; J2310; J7030; J7042

== ENCOUNTER 2021-09-11 12:23 | Inpatient (IN) | payer MEDICARE, MEDICAID ==
[~2021-09-11] VITALS: Ht 165.1 cm; Wt 54.4 kg
[~2021-09-11 12:23] MED LIST changes: +AMPH20TA2 PO; -AMPH20TA20 PO
[2021-09-11] MEDS ORDERED: SODIUM CHLORIDE 0.9% 1,000 ML IV ONE (12:45)
[2021-09-11] MEDS ORDERED: CLINDAMYCIN 600MG IV 50 ML IV ONE (12:45)
[2021-09-11] MEDS ORDERED: cefTRIAXone 1GM/50ML D5W 50 ML IV ONE (12:45)
[2021-09-11] MEDS ORDERED: ONDANSETRON HCL 4 MG/2 ML VIAL IV PRN (18:15)
[2021-09-11] MEDS ORDERED: MORPHINE SULFATE INJECTION 2 MG/ML SYRG IV PRN (18:15)
[2021-09-11] MEDS ORDERED: ACETAMINOPHEN 325 MG TAB PO PRN (18:15)
[2021-09-11] MEDS ORDERED: DOCUSATE SOD 100 MG CAP PO PRN (18:15)
[2021-09-11] MEDS ORDERED: HYDROcodone-ACET 5/325MG TAB PO PRN (18:15)
[2021-09-11] MEDS ORDERED: TEMAZEPAM 15 MG CAP PO PRN (18:15)
[2021-09-11] MEDS ORDERED: VANCOMYCIN PER PHARMACY 0 MG IV SCH (18:15)
[2021-09-11] MEDS ORDERED: NITROGLYCERIN 0.4 MG SL TAB SL PRN (18:15)
[2021-09-11 21:15] LABS: Anion Gap 7 (5-15); Blood Urea Nitrogen 18 mg/dL (7-18); Calcium 7.2 mg/dL (8.5-10.1); Carbon Dioxide 23 mmol/L (21-32); Chloride 111 mmol/L (98-107); Glucose 72 mg/dL (74-106); Potassium 3.8 mmol/L (3.5-5.1); Sodium 141 mmol/L (136-145)
[2021-09-11] MEDS ORDERED: VANCOMYCIN 1GM/250ML 250 ML IV ONE (21:15)
[2021-09-11 21:18] LABS: Basophils # (auto) 0.1 10 ^3/uL (0-0.2); Basophils % (auto) 0.4 % (0.0-2.0); Eosinophils # (auto) 0 10 ^3/uL (0-0.8); Eosinophils % (auto) 0.1 % (0.0-7.0); Hematocrit 28.7 % (36.0-46.0); Hemoglobin 8.7 g/dL (12.2-16.2); Lymphocytes # (auto) 0.9 10 ^3/uL (0.4-5.4); Lymphocytes % (auto) 4.7 % (10.0-50.0); Mean Corpuscular Hemoglobin 23.9 pg (28.0-32.0); Mean Corpuscular Hgb Conc. 30.2 g/dL (32.0-36.0); Mean Corpuscular Volume 79.1 fL (80.0-100.0); Monocytes # (auto) 0.5 10 ^3/uL (0-1.3); Monocytes % (auto) 2.6 % (0.0-12.0); Neutrophils # (auto) 17.1 10 ^3/uL (1.6-8.6); Neutrophils % (auto) 92.2 % (37.0-80.0); Nucleated Red Blood Cells % 0.3 %; Red Blood Cells 3.63 10^6/uL (4.0-5.20); Red Cell Distribution Width 16.6 % (11.8-14.3); White Blood Cell 18.6 10^3/uL (4.4-10.8)
[2021-09-11 21:19] LABS: Alanine Aminotransferase 58 U/L (13-56); Alkaline Phosphatase 132 U/L (45-117); Aspartate Aminotransferase 32 U/L (15-37); BUN/Creatinine Ratio 20.7; Bilirubin, Total 1.1 mg/dL (0.2-1.0); GFR African American 88 mL/min; GFR Non-African American 72 mL/min
[2021-09-11 22:29] LABS: Lactic Acid w/Reflex 2.7 mmol/L (0.4-2.0)
[2021-09-12] MEDS: ASCORBIC ACID 500 MG TAB PO SCH ×2 (00:29→09:55)
[2021-09-12 00:39] LABS: BUN/Creatinine Ratio 25.4; Potassium 3.7 mmol/L (3.5-5.1)
[2021-09-12] MEDS ORDERED: SODIUM CHLORIDE 0.9% 1,000 ML IV STA (01:36)
[2021-09-12] MEDS ORDERED: POTASSIUM CHL 20MEQ/100ML 100 ML IV ONE (02:15)
[2021-09-12] MEDS ORDERED: NOREPINEPHRINE 8 MG/250ML KIT 250 ML IV ONE (02:44)
[2021-09-12] MEDS ORDERED: NOREPINEPHRINE 8 MG/250ML KIT 250 ML IV SCH (03:15)
[2021-09-12] MEDS: MORPHINE SULFATE 4 MG/ML SYR/VIAL IV PRN ×2 (05:32→09:57)
[2021-09-12] MEDS ORDERED: FUROSEMIDE 40 MG/4 ML VIAL IV SCH (06:00)
[2021-09-12 07:29] LABS: Hematocrit 32.5 % (36.0-46.0); Hemoglobin 9.5 g/dL (12.2-16.2); Mean Corpuscular Hemoglobin 23.9 pg (28.0-32.0); Mean Corpuscular Hgb Conc. 29.1 g/dL (32.0-36.0); Mean Corpuscular Volume 82.3 fL (80.0-100.0); Red Blood Cells 3.95 10^6/uL (4.0-5.20); Red Cell Distribution Width 17.2 % (11.8-14.3); White Blood Cell 23.9 10^3/uL (4.4-10.8)
[2021-09-12 07:40] LABS: Calcium 7.2 mg/dL (8.5-10.1); Potassium 4.1 mmol/L (3.5-5.1)
[2021-09-12 07:43] LABS: BUN/Creatinine Ratio 20.5; Basophils % (manual) 0 (0.0-2.0); Blast Cells 0; Eosinophils % (manual) 0 (0-7); Metamyelocytes % 0; Myelocytes % 0; Promyelocytes % 0; Reactive Lymphocytes 0; Total Protein 4.9 g/dL (6.4-8.2)
[2021-09-12 08:34] LABS: Band Neutrophils % (manual) 18; Lymphocytes % (manual) 7 (10.0-50.0); Monocytes % (manual) 5 (0-12)
[2021-09-12] MEDS ORDERED: MULTIPLE VITAMIN TAB PO SCH (10:00)
[2021-09-12] MEDS ORDERED: levoFLOXacin 500MG 100 ML IV SCH (10:00)
[2021-09-12] MEDS ORDERED: ZINC SULFATE 220mg CAP or TAB PO SCH (10:00)
[2021-09-12] MEDS ORDERED: ENOXAPARIN SOD 40 MG/0.4 ML SYRINGE SC SCH (10:00)
[2021-09-12 11:29] LABS: INR 1.49 (0.9-1.15); Partial Thromboplastin Time 33.3 sec (23.6-33.0)
[2021-09-12 12:15] VITALS: BP 116/85
[2021-09-12] MEDS ORDERED: VANCOMYCIN 1GM/250ML 250 ML IV SCH (13:00)
== END 2021-09-12 13:06 | disposition left against medical advice (07) | DRG 602 ==
LOC: ER 12:23 → EDBD 12:23 → TELE 18:12 → TELE-WESTW 22:44 → TELE 09-12 02:35
PROVIDERS: ADMIT Internal Medicine; ATTEND Internal Medicine
PROC: 05H933Z Insertion of Infusion Device into Right Brachial Vein, Percutaneous Approach (ICD-10-PCS; principal; 2021-09-12)
PROC: B54MZZA Ultrasonography of Right Upper Extremity Veins, Guidance (ICD-10-PCS; 2021-09-12)
DX: L03.116 Cellulitis of left lower limb (principal); J18.9 Pneumonia, unspecified organism; D63.8 Anemia in other chronic diseases classified elsewhere; G89.4 Chronic pain syndrome; L03.115 Cellulitis of right lower limb; Z20.822 Contact with and (suspected) exposure to COVID-19; Z82.49 Family history of ischemic heart disease and other diseases of the circulatory system; Z80.8 Family history of malignant neoplasm of other organs or systems; Z83.3 Family history of diabetes mellitus; Z88.5 Allergy status to narcotic agent; Z90.49 Acquired absence of other specified parts of digestive tract
CPT/HCPCS: 36415; 71045; 73700; 80048; 80053; 83605; 83880; 84484; 85007; 85025; 85027; 85610; 85730; 87040; 87426; 93005; 93306; 96361; 96365; 96367; G0378; J0696; J1956; J2405; J3490